=== PATIENT | female | born 1995 | race Caucasian/White ===

== ENCOUNTER 2022-02-19 18:50 | Outpatient (REF) | payer BC, SELFPAY ==
[2022-02-19 19:20] LABS: Abs Immature Grans 0.01 10^3/uL (0.0-0.06); Absolute Basophil Count 0.03 10^3/uL (0.0-0.2); Absolute Eosinophil Count 0.03 10^3/uL (0.0-0.7); Absolute Monocyte Count 0.36 10^3/uL (0.1-0.8); Absolute Neutrophil Count 3.89 10^3/uL (1.2-6.7); Basophils % 0.6; Eosinophils % 0.6; HCT 40.6 % (36.0-46.0); HGB 14.2 g/dL (11.2-15.7); Immature Grans % 0.2; Lymphocytes % 15.6; MCV 94.4 fL (80-95); MPV 10.3 fL (8.0-11.0); Nucleated RBC 0 %; Platelet Count 221 10^3/uL (130-400); RDW 12.4 % (11.7-14.6); RDW-SD 42.9 fL; WBC 5.12 10^3/uL (4.4-10.8)
== END 2022-02-19 18:51 | disposition home or self-care (01) ==
LOC: NCHCN 18:50
PROVIDERS: Visit Provider Nurse Practitioner Family
DX: R53.83 Other fatigue (principal); U09.9 Post COVID-19 condition, unspecified; Z86.39 Personal history of other endocrine, nutritional and metabolic disease
CPT/HCPCS: 82306; 84443; 85025

== ENCOUNTER 2022-03-06 10:10 | Outpatient (REF) | payer SELFPAY ==
--- NOTE | 2022-03-06 10:00 | PAPFT_PTH ---
PATIENT: Elsa Brady LOC: [facility] U#:[id number] AGE/SX: 27/F ROOM: RE03/06/[address]: Beth Burks : 1995 BED: DIS: 03/06/2022 SPEC #: [id number] RECD: 03/06/22 12:46 STATUS: DELICIA REQ #: [id number] CARRILLO: 03/06/22 10:[address]: Beth Burks DEPT: [facility] Cytology RECD BY: Lisa Brantley ENTERED: 03/06/22 12:46 SP TYPE: PAPFT OTHR DR: Unknown,Unknown Tissues: 1 - CX/ENDOCX FOR PAP SMEARS Procedures: PAP THIN PREP/[facility] Screening Comments: [id number]
[2022-03-09 15:02] LABS: Chlamydia Result Negative (Negative); GC Result Negative (Negative)
== END 2022-03-06 10:11 | disposition home or self-care (01) ==
LOC: LBN 10:10
PROVIDERS: Visit Provider Obstetrics & Gynecology Gynecology
DX: Z11.3 Encounter for screening for infections with a predominantly sexual mode of transmission (principal); Z12.4 Encounter for screening for malignant neoplasm of cervix
CPT/HCPCS: 87491; 87591; 88142

== ENCOUNTER 2022-03-06 10:14 | Outpatient (REF) | payer SELFPAY | END 2022-03-06 10:15 | disposition home or self-care (01) | LOC: LBN 10:14 | PROVIDERS: PCP Nurse Practitioner Family; Visit Provider Obstetrics & Gynecology Gynecology ==

== ENCOUNTER 2022-04-01 18:47 | Outpatient (REF) | payer SELFPAY ==
[2022-04-03 11:10] LABS: COVID-19 RT-PCR UVMMC Result Negative (Negative)
== END 2022-04-01 18:48 | disposition home or self-care (01) ==
LOC: LBN 18:47
PROVIDERS: Visit Provider Physician Assistant Medical
DX: U09.9 Post COVID-19 condition, unspecified (principal)
CPT/HCPCS: U0003

== ENCOUNTER 2022-04-14 17:18 | Outpatient (REF) | payer MEDICAID, SELFPAY ==
[2022-04-16 10:41] LABS: Lyme Ab w Rflx to Lyme Confirm Negative (Negative)
[2022-04-18 01:16] LABS: Anaplasma phagocytophilum Negative (Negative); B. miyamotoi PCR Negative (Negative); Babesia divergens/MO-1 Negative (Negative); Babesia duncani Negative (Negative); Babesia microti Negative (Negative); Ehrlichia chaffeensis Negative (Negative); Ehrlichia ewingii/canis Negative (Negative); Ehrlichia muris eauclairensis Negative (Negative)
== END 2022-04-14 17:19 | disposition home or self-care (01) ==
LOC: LBN 17:18
PROVIDERS: Visit Provider Nurse Practitioner Family
DX: R53.83 Other fatigue (principal)
CPT/HCPCS: 87798; 86618